=== PATIENT | female | born 1940 | race Caucasian/White ===

== ENCOUNTER → 2016-12-02 | Outpatient (CLI) | payer MEDICARE ==
[~2016-12-02] MED LIST: AMLO10TA82 PO; ASPI-586 PO; CA C1TAB74 PO; CHOL200014 PO; LOSA1TAB69 PO; METAMUCIL425 GM PO; METO25TA60 PO; OMG1KC PO
--- NOTE | 2016-12-02 20:16 | Diagnostic Imaging Report ---
INDICATION: Screening mammogram dated 12/02/2016. COMPARISON: 11/30/2015 and 11/02/2013. The current study was also evaluated with a Computer Aided Detection (CAD) system. FINDINGS: There are no suspicious microcalcifications on either side with no new dominant masses appreciated. Overall, the breasts are heterogeneously dense and stable in appearance when compared with previous imaging. There are several bilateral calcifications. These appear stable and benign. IMPRESSION: 1. No mammographic evidence for malignancy. Yearly screening is recommended. ACR BI-RADS Category 2: Benign findings. Result letter will be mailed to the patient. Note: At least 10% of breast cancer is not imaged by mammography. Dictated by: Dictated on workstation # [id number]
== END ==
LOC: RAD 08:09
PROVIDERS: ATTEND Internal Medicine
DX: Z12.31 Encounter for screening mammogram for malignant neoplasm of breast (principal)

== ENCOUNTER → 2016-12-26 | Outpatient (CLI) | payer MEDICARE ==
[2016-12-26 07:43] LABS: BASOPHILS % (AUTO) 1 % (0-2); EOSINOPHILS # (AUTO) 0.2 10^3uL; EOSINOPHILS % (AUTO) 5 % (0-4); LYMPHOCYTES # (AUTO) 1.4 X10^3; MEAN CORPUSCULAR HEMOGLOBIN 31.2 PG (26.0-34.0); MEAN CORPUSCULAR HGB CONC 34.4 g/dL (31.0-37.0); MEAN CORPUSCULAR VOLUME 91 FL (80-100); MEAN PLATELET VOLUME 8.5 FL (6.0-9.5); MONOCYTES # (AUTO) 0.3 X10^3; MONOCYTES % (AUTO) 7 % (3-11); NEUTROPHILS # (AUTO) 2.4 X10^3; NEUTROPHILS % (AUTO) 55 % (51-67); PLATELET COUNT 239 10^3uL (150-450); WHITE BLOOD COUNT 4.38 10^3uL (4.0-11.0)
[2016-12-26 07:47] LABS: BILIRUBIN,URINE Negative (Negative); CLARITY,URINE Clear; COLOR,URINE Yellow; GLUCOSE, URINE (UA) Negative (Negative); LEUKOCYTE ESTERASE ,URINE 1+ (Negative); PH,URINE 7.5 (5.0 - 8.0); UROBILINOGEN,URINE 0.2 mg/dL (0.2-1.0)
[2016-12-26 08:05] LABS: RBC,URINE 0-2 /HPF; URINE CENTRIFUGED VOLUME 12 mL
[2016-12-26 08:30] LABS: ALBUMIN 4.2 g/dL (3.4-5.0); ANION GAP 11.9 MEQ/L (3-15); CALCULATED IONIZED CALCIUM 4.2 mg/dL (3.8-4.6); TOTAL PROTEIN 7.1 g/dL (6.4-8.5)
== END ==
LOC: LAB 07:14
PROVIDERS: ATTEND Family Medicine
DX: I51.7 Cardiomegaly (principal); I10 Essential (primary) hypertension; K21.9 Gastro-esophageal reflux disease without esophagitis; N39.46 Mixed incontinence; I35.1 Nonrheumatic aortic (valve) insufficiency; I34.0 Nonrheumatic mitral (valve) insufficiency
CPT/HCPCS: 36415; 80053; 80061; 81003; 81015; 84443; 85025; 87088; 87147